=== PATIENT | male | born 1950 | race Caucasian/White ===

== ENCOUNTER 2018-03-01 09:56 | Day surgery (SDC) | payer MEDICARE ==
[2018-03-01] MEDS ORDERED: fentaNYL 100 MCG/2 ML INJECTION (J3010) As Ordered (11:05)
[2018-03-01] MEDS ORDERED: PROPOFOL 500 MG/50 ML VIAL As Ordered (11:05)
[2018-03-01] MEDS: NS 1,000 ML IV (11:42)
[2018-03-01] MEDS ORDERED: LIDOCAINE 2% INJ 100 MG/5 ML SDV (FOR ANES.) As Ordered (12:15)
[2018-03-01] MEDS ORDERED: PROPOFOL 200 MG/20 ML VIAL As Ordered (12:54)
== END 2018-03-01 13:49 | disposition home or self-care (01) ==
LOC: M OPP 09:56
DX: Z12.11 Encounter for screening for malignant neoplasm of colon (principal); Z86.010 Personal history of colon polyps; D12.2 Benign neoplasm of ascending colon; D12.4 Benign neoplasm of descending colon; K57.30 Diverticulosis of large intestine without perforation or abscess without bleeding; K64.8 Other hemorrhoids; K22.70 Barrett's esophagus without dysplasia; R12 Heartburn; K22.8 Other specified diseases of esophagus; K44.9 Diaphragmatic hernia without obstruction or gangrene; K31.7 Polyp of stomach and duodenum; K21.9 Gastro-esophageal reflux disease without esophagitis; I10 Essential (primary) hypertension; R60.0 Localized edema; E03.9 Hypothyroidism, unspecified; K52.9 Noninfective gastroenteritis and colitis, unspecified; K57.32 Diverticulitis of large intestine without perforation or abscess without bleeding; M19.90 Unspecified osteoarthritis, unspecified site; R21 Rash and other nonspecific skin eruption; G47.30 Sleep apnea, unspecified; E11.9 Type 2 diabetes mellitus without complications; E66.01 Morbid (severe) obesity due to excess calories; Z87.891 Personal history of nicotine dependence; Z79.84 Long term (current) use of oral hypoglycemic drugs; Z79.899 Other long term (current) drug therapy; Z80.3 Family history of malignant neoplasm of breast
CPT/HCPCS: 45385

== ENCOUNTER → 2019-02-08 | Outpatient (CLI) | payer MEDICARE ==
[~2019-02-08] MED LIST: ATEN25TA OR; CLIN300C PO; HYDR25TA6 OR; LEVO50TA5 PO; LISI20TA5 OR; PRIL20CA OR
--- NOTE | 2019-02-08 11:05 | REP ---
RIGHT KNEE SERIES: Six views of the right knee are performed. There is no acute fracture or dislocation. There is moderate medial joint space narrowing with subchondral sclerosis. There is mild superior patellar spurring. Nonspecific oval calcification lateral to the distal femur could represent a calcific body in the suprapatellar recess. There is a mild to moderate joint effusion. IMPRESSION: No acute fracture. Moderate degenerative changes. Mild to moderate joint effusion. Electronically Signed by Silverio Huerta MD 02/11/2019 01:30 P
== END ==
LOC: M LRY 10:17
PROVIDERS: ATTEND Nurse Practitioner Family
DX: M25.461 Effusion, right knee (principal); M25.561 Pain in right knee

== ENCOUNTER → 2021-07-07 | Outpatient (CLI) | payer MEDICARE ==
[~2021-07-07] MED LIST changes: +AMLO1TAB25 PO; +ATOR80TA59 PO; +FURO20TA2 PO; +LISI40TA4 PO; +METF10004 PO; +OMEP1CAP73 PO; +SYNT50TA PO
== END ==
LOC: M LABSMTC 10:45
PROVIDERS: ATTEND Anesthesiology
DX: Z01.818 Encounter for other preprocedural examination (principal); Z11.52 Encounter for screening for COVID-19

== ENCOUNTER 2021-07-12 06:59 | Day surgery (SDC) | payer MEDICARE ==
[~2021-07-12] VITALS: Ht 177.8 cm; Wt 156.5 kg
[~2021-07-12 06:59] MED LIST changes: +NS 1,000 ML IV ONE
[2021-07-12] MEDS ORDERED: LIDOCAINE 2% 100MG/5ML SDV (FOR ANES.) As Ordered ONE (08:35)
[2021-07-12] MEDS ORDERED: propofoL 200 MG/20 ML VIAL As Ordered ONE (08:35)
--- NOTE | 2021-07-12 08:41 | ROOR ---
Patient Name: Wesley Arredondo Procedure Date: 07/12/2021 8:13 AM Date of : 1950 Age: 70 Room: [facility] Gender: Male Note Status: Finalized Procedure: Upper GI endoscopy Indications: Surveillance for malignancy due to personal history of Hector's esophagus Providers: Fred Nicholson MD Referring MD: Batool Viera NP Requesting Provider: Medicines: Monitored Anesthesia Care Complications: No immediate complications. Procedure: Pre-Anesthesia Assessment: - The heart rate, respiratory rate, oxygen saturations, blood pressure, adequacy of pulmonary ventilation, and response to care were monitored throughout the procedure. The Endoscope was introduced through the mouth, and advanced to the second part of duodenum. The upper GI endoscopy was accomplished without difficulty. The patient tolerated the procedure well. Findings: The esophagus and gastroesophageal junction were examined with white light and narrow band imaging (NBI) from a forward view and retroflexed position. There were esophageal mucosal changes consistent with long-segment Hector's esophagus. These changes involved the mucosa at the upper extent of the gastric folds (36 cm from the incisors) extending to the Z-line (30 cm from the incisors). Estelline-colored mucosa was present and no visible abnormalities were present. The maximum longitudinal extent of these esophageal mucosal changes was 5 cm in length. Mucosa was biopsied with a cold forceps for histology randomly at intervals of 1 cm. A total of 5 specimen bottles were sent to pathology. Small Hiatal Hernia. The exam was otherwise without abnormality. Impression: - Esophageal mucosal changes consistent with (5 cm, smooth, circumferential and short tongue) long-segment Hector's esophagus. Biopsied. - Small Hiatal Hernia. - The examination was otherwise normal. Recommendation: - Repeat upper endoscopy in 3 years for surveillance of Hector's esophagus. - Await pathology results. - Telephone endoscopist for pathology results in 2 weeks. - Use Prilosec (omeprazole) 20 mg PO BID indefinitely. Procedure Code(s): --- Professional --- 13067, Esophagogastroduodenoscopy, flexible, transoral; with biopsy, single or multiple Diagnosis Code(s): --- Professional --- K22.70, Hector's esophagus without dysplasia CPT copyright 2019 [employer]. All rights reserved. The codes documented in this report are preliminary and upon wool fleece grader review may be revised to meet current compliance requirements. Fred Nicholson MD Fred Nicholson MD 07/12/2021 8:41:08 AM Electronically signed by Fred Nicholson MD Number of Addenda: 0 Note Initiated On: 07/12/2021 8:13 AM Estimated Blood Loss: Estimated blood loss: none.
[2021-07-12 08:58] VITALS: BP 126/59
== END 2021-07-12 08:57 | disposition home or self-care (01) ==
LOC: M OPP 06:59
PROVIDERS: ATTEND Internal Medicine Gastroenterology
DX: K44.9 Diaphragmatic hernia without obstruction or gangrene (principal); K22.70 Barrett's esophagus without dysplasia; Z79.84 Long term (current) use of oral hypoglycemic drugs; Z79.899 Other long term (current) drug therapy

== ENCOUNTER → 2022-06-01 | Outpatient (CLI) | payer MEDICARE ==
[~2022-06-01] MED LIST changes: -NS 1,000 ML IV ONE
== END ==
LOC: M LABSMTC 11:00
PROVIDERS: ATTEND Anesthesiology
DX: Z11.52 Encounter for screening for COVID-19 (principal)

== ENCOUNTER 2022-06-06 07:28 | Day surgery (SDC) | payer MEDICARE ==
[~2022-06-06] VITALS: Ht 177.8 cm; Wt 156.9 kg
[~2022-06-06 07:28] MED LIST changes: +CYCLOPENTOLATE 1% OPHTH SOLN 2 ML BTL OS SCH; +FLURBIPROFEN 0.03% OPHTH SOLN 2.5 ML OS SCH; +LIDOCAINE 1% SDV 5ML VIAL As Ordered ONE; +LR 1,000 ML IV SCH; +PHENYLEPHRINE 2.5% OPHTH SOL 2ML OS SCH; +TETRACAINE 0.5% OPHTH SOLN 4ML OS SCH
[2022-06-06] MEDS ORDERED: MIDAZOLAM INJ 2MG/2ML VIAL (J2250 PER 1MG) As Ordered ONE (07:40)
[2022-06-06] MEDS ORDERED: fentaNYL 100 MCG/2 ML INJECTION As Ordered ONE (07:40)
[2022-06-06 10:03] VITALS: BP 172/89
== END 2022-06-06 10:28 | disposition home or self-care (01) ==
LOC: M SDC 07:28
PROVIDERS: ATTEND Ophthalmology
DX: H25.12 Age-related nuclear cataract, left eye (principal); I10 Essential (primary) hypertension; E11.9 Type 2 diabetes mellitus without complications; E03.9 Hypothyroidism, unspecified; K21.9 Gastro-esophageal reflux disease without esophagitis; K57.92 Diverticulitis of intestine, part unspecified, without perforation or abscess without bleeding; G47.33 Obstructive sleep apnea (adult) (pediatric); Z79.899 Other long term (current) drug therapy; Z79.84 Long term (current) use of oral hypoglycemic drugs; Z87.891 Personal history of nicotine dependence
CPT/HCPCS: 66984; J2250; J3010; V2632

== ENCOUNTER → 2022-07-06 | Outpatient (CLI) | payer MEDICARE ==
[~2022-07-06] MED LIST changes: -CYCLOPENTOLATE 1% OPHTH SOLN 2 ML BTL OS SCH; -FLURBIPROFEN 0.03% OPHTH SOLN 2.5 ML OS SCH; -LIDOCAINE 1% SDV 5ML VIAL As Ordered ONE; -LR 1,000 ML IV SCH; -PHENYLEPHRINE 2.5% OPHTH SOL 2ML OS SCH; -TETRACAINE 0.5% OPHTH SOLN 4ML OS SCH
== END ==
LOC: M LABSMTC 10:22
PROVIDERS: ATTEND Anesthesiology
DX: Z01.812 Encounter for preprocedural laboratory examination (principal); Z11.52 Encounter for screening for COVID-19

== ENCOUNTER 2022-07-11 06:30 | Day surgery (SDC) | payer MEDICARE ==
[~2022-07-11] VITALS: Ht 177.8 cm; Wt 159.7 kg
[~2022-07-11 06:30] MED LIST changes: +CYCLOPENTOLATE 1% OPHTH SOLN 2 ML BTL OD SCH; +FLURBIPROFEN 0.03% OPHTH SOLN 2.5 ML OD SCH; +PHENYLEPHRINE 2.5% OPHTH SOL 2ML OD SCH; +TETRACAINE 0.5% OPHTH SOLN 4ML OD SCH
[2022-07-11] MEDS ORDERED: LIDOCAINE 1% SDV 5ML VIAL As Ordered ONE (06:40)
[2022-07-11] MEDS ORDERED: LR 1,000 ML IV SCH (07:00)
[2022-07-11] MEDS ORDERED: MIDAZOLAM INJ 2MG/2ML VIAL (J2250 PER 1MG) As Ordered ONE (07:45)
[2022-07-11] MEDS ORDERED: fentaNYL 100 MCG/2 ML INJECTION As Ordered ONE (07:46)
[2022-07-11 10:00] VITALS: BP 184/79
== END 2022-07-11 10:04 | disposition home or self-care (01) ==
LOC: M SDC 06:30
PROVIDERS: ATTEND Ophthalmology
DX: H25.11 Age-related nuclear cataract, right eye (principal); I10 Essential (primary) hypertension; E11.9 Type 2 diabetes mellitus without complications; E78.5 Hyperlipidemia, unspecified; E03.9 Hypothyroidism, unspecified; Z79.899 Other long term (current) drug therapy; Z79.890 Hormone replacement therapy; Z79.84 Long term (current) use of oral hypoglycemic drugs
CPT/HCPCS: 66984; J2250; J3010; V2632

== ENCOUNTER → 2022-12-15 | Outpatient (REF) | payer MEDICARE ==
[~2022-12-15] MED LIST changes: -CYCLOPENTOLATE 1% OPHTH SOLN 2 ML BTL OD SCH; -FLURBIPROFEN 0.03% OPHTH SOLN 2.5 ML OD SCH; -PHENYLEPHRINE 2.5% OPHTH SOL 2ML OD SCH; -TETRACAINE 0.5% OPHTH SOLN 4ML OD SCH
== END ==
LOC: M SFHCPLAZ 19:57
PROVIDERS: ATTEND Nurse Practitioner Adult Health
DX: E78.00 Pure hypercholesterolemia, unspecified (principal); E11.9 Type 2 diabetes mellitus without complications; E03.9 Hypothyroidism, unspecified

== ENCOUNTER → 2023-05-09 | Outpatient (CLI) | payer MEDICARE ==
[~2023-05-09] MED LIST changes: +CARV6.25 PO; +LISI20TA33 PO; +SEMA0.257 SQ; +SYNJ1TAB3 PO
[2023-05-09 15:15] LABS: HEMOGLOBIN A1c 6.1 % (4.0-6.0)
== END ==
LOC: M PLALAB 10:13
PROVIDERS: ATTEND Nurse Practitioner Adult Health
DX: E11.9 Type 2 diabetes mellitus without complications (principal)

== ENCOUNTER 2023-05-29 07:52 | Day surgery (SDC) | payer MEDICARE ==
[~2023-05-29] VITALS: Ht 177.8 cm; Wt 135.2 kg
[~2023-05-29 07:52] MED LIST changes: +NS 1,000 ML IV ONE; +propofoL 200 MG/20 ML VIAL As Ordered ONE
[2023-05-29] MEDS ORDERED: LIDOCAINE 2% 100MG/5ML SDV (FOR ANES.) As Ordered ONE (07:54)
[2023-05-29 10:22] VITALS: BP 125/68; O2SAT 98
== END 2023-05-29 10:24 | disposition home or self-care (01) ==
LOC: M OPP 07:52
PROVIDERS: ATTEND Internal Medicine Gastroenterology
DX: Z86.010 Personal history of colon polyps (principal); D12.0 Benign neoplasm of cecum; D12.3 Benign neoplasm of transverse colon; K64.8 Other hemorrhoids; K57.30 Diverticulosis of large intestine without perforation or abscess without bleeding; Z79.890 Hormone replacement therapy; Z79.899 Other long term (current) drug therapy

== ENCOUNTER 2025-01-14 10:51 | Day surgery (SDC) | payer MEDICARE ==
[~2025-01-14] VITALS: Ht 177.8 cm; Wt 134.4 kg
[~2025-01-14 10:51] MED LIST changes: -NS 1,000 ML IV ONE; +POTA-298 PO; +SEMA2PEN SQ; +SYNT75TA PO; -propofoL 200 MG/20 ML VIAL As Ordered ONE
[2025-01-14] MEDS ORDERED: propofoL 200 MG/20 ML VIAL As Ordered ONE (12:49)
[2025-01-14] MEDS ORDERED: LIDOCAINE 2% 100MG/5ML SDV (FOR ANES.) As Ordered ONE (12:49)
[2025-01-14 12:52] VITALS: TEMP 97.8
[2025-01-14 13:15] VITALS: BP 121/68; O2SAT 96
== END 2025-01-14 13:21 | disposition home or self-care (01) ==
LOC: M OPP 10:51
PROVIDERS: ATTEND Internal Medicine Gastroenterology
DX: K22.70 Barrett's esophagus without dysplasia (principal); K44.9 Diaphragmatic hernia without obstruction or gangrene; G47.30 Sleep apnea, unspecified; Z79.85 Long-term (current) use of injectable non-insulin antidiabetic drugs; Z79.84 Long term (current) use of oral hypoglycemic drugs; Z79.899 Other long term (current) drug therapy